=== PATIENT | female | born 1960 | race Native Hawaiian/Other Pacific Islander ===

== ENCOUNTER 2023-03-11 10:41 | Day surgery (SDC) | payer OTHER | END 2023-03-11 14:00 | disposition home or self-care (01) | LOC: OR 10:41 | PROVIDERS: ATTEND Internal Medicine Gastroenterology | PROC: 0DB78ZX Excision of Stomach, Pylorus, Via Natural or Artificial Opening Endoscopic, Diagnostic (ICD-10-PCS; principal; 2023-03-11) | DX: K29.00 Acute gastritis without bleeding (principal); K20.90 Esophagitis, unspecified without bleeding | CPT/HCPCS: J7120 ==

== ENCOUNTER 2023-04-22 09:33 | Day surgery (SDC) | payer OTHER ==
[~2023-04-22] VITALS: Ht 165.1 cm; Wt 68.0 kg
== END 2023-04-22 14:05 | disposition home or self-care (01) ==
LOC: OR 09:33
PROVIDERS: ATTEND Internal Medicine Gastroenterology
PROC: 0DJD8ZZ Inspection of Lower Intestinal Tract, Via Natural or Artificial Opening Endoscopic (ICD-10-PCS; principal; 2023-04-22)
DX: Z12.11 Encounter for screening for malignant neoplasm of colon (principal); K57.30 Diverticulosis of large intestine without perforation or abscess without bleeding; K64.0 First degree hemorrhoids
CPT/HCPCS: J2704; J7120